=== PATIENT | male | born 1970 | race Caucasian/White ===

== ENCOUNTER → 2019-05-21 10:57 | Outpatient (BNVA) | payer MEDICARE, MEDICAID, SELFPAY | PROVIDERS: Family Provider Nurse Practitioner; PCP Nurse Practitioner; Visit Provider Nurse Practitioner | DX: E11.65 Type 2 diabetes mellitus with hyperglycemia (principal); I10 Essential (primary) hypertension; E11.40 Type 2 diabetes mellitus with diabetic neuropathy, unspecified; K12.2 Cellulitis and abscess of mouth; E55.9 Vitamin D deficiency, unspecified | CPT/HCPCS: 80053; 81003; 83036 ==

== ENCOUNTER → 2019-08-19 08:43 | Outpatient (BNVA) | payer MEDICARE, MEDICAID, SELFPAY | PROVIDERS: Family Provider Nurse Practitioner; PCP Nurse Practitioner; Visit Provider Nurse Practitioner | DX: E11.65 Type 2 diabetes mellitus with hyperglycemia (principal); I10 Essential (primary) hypertension; E11.40 Type 2 diabetes mellitus with diabetic neuropathy, unspecified; E55.9 Vitamin D deficiency, unspecified; K12.2 Cellulitis and abscess of mouth; M77.32 Calcaneal spur, left foot | CPT/HCPCS: 73630; 80053; 80061; 81000; 83036 ==

== ENCOUNTER → 2020-02-07 08:37 | Outpatient (BNVA) | payer MEDICARE, MEDICAID, SELFPAY | PROVIDERS: Family Provider Nurse Practitioner; PCP Nurse Practitioner; Visit Provider Nurse Practitioner | DX: I10 Essential (primary) hypertension (principal); E55.9 Vitamin D deficiency, unspecified; E11.65 Type 2 diabetes mellitus with hyperglycemia; E11.40 Type 2 diabetes mellitus with diabetic neuropathy, unspecified | CPT/HCPCS: 80053; 80061; 81000; 82306; 83036 ==

== ENCOUNTER → 2020-05-25 08:30 | Outpatient (BNVA) | payer MEDICARE, MEDICAID, SELFPAY | PROVIDERS: Family Provider Nurse Practitioner; PCP Nurse Practitioner; Visit Provider Nurse Practitioner | DX: E55.9 Vitamin D deficiency, unspecified (principal); E11.65 Type 2 diabetes mellitus with hyperglycemia; E11.40 Type 2 diabetes mellitus with diabetic neuropathy, unspecified; I10 Essential (primary) hypertension; M19.90 Unspecified osteoarthritis, unspecified site | CPT/HCPCS: 80053; 81000; 82306; 83036 ==

== ENCOUNTER → 2020-09-01 08:37 | Outpatient (BNVA) | payer MEDICARE, MEDICAID, SELFPAY | PROVIDERS: Family Provider Nurse Practitioner; PCP Nurse Practitioner; Visit Provider Nurse Practitioner | DX: E55.9 Vitamin D deficiency, unspecified (principal); E11.65 Type 2 diabetes mellitus with hyperglycemia; E11.40 Type 2 diabetes mellitus with diabetic neuropathy, unspecified; I10 Essential (primary) hypertension; M19.90 Unspecified osteoarthritis, unspecified site | CPT/HCPCS: 80053; 81000; 82043; 82306; 83036 ==

== ENCOUNTER → 2020-12-07 08:31 | Outpatient (BNVA) | payer MEDICARE, MEDICAID, SELFPAY | PROVIDERS: Family Provider Nurse Practitioner; PCP Nurse Practitioner; Visit Provider Nurse Practitioner | DX: E11.65 Type 2 diabetes mellitus with hyperglycemia (principal); E11.40 Type 2 diabetes mellitus with diabetic neuropathy, unspecified; E55.9 Vitamin D deficiency, unspecified; I10 Essential (primary) hypertension | CPT/HCPCS: 80053; 81000; 83036 ==

== ENCOUNTER → 2021-03-05 08:30 | Outpatient (BNVA) | payer MEDICARE, MEDICAID, SELFPAY | PROVIDERS: Family Provider Nurse Practitioner; PCP Nurse Practitioner; Visit Provider Nurse Practitioner | DX: E11.65 Type 2 diabetes mellitus with hyperglycemia (principal); E55.9 Vitamin D deficiency, unspecified | CPT/HCPCS: 80053; 80061; 81000; 82306; 83036 ==

== ENCOUNTER → 2021-08-06 08:55 | Outpatient (BNVA) | payer MEDICARE, MEDICAID, SELFPAY | PROVIDERS: Family Provider Nurse Practitioner; PCP Nurse Practitioner; Visit Provider Nurse Practitioner | DX: E11.65 Type 2 diabetes mellitus with hyperglycemia (principal); E11.40 Type 2 diabetes mellitus with diabetic neuropathy, unspecified; I10 Essential (primary) hypertension; E55.9 Vitamin D deficiency, unspecified; G47.33 Obstructive sleep apnea (adult) (pediatric); Z99.89 Dependence on other enabling machines and devices; J98.01 Acute bronchospasm | CPT/HCPCS: 80053; 80061; 81000; 83036 ==

== ENCOUNTER → 2021-11-08 08:15 | Outpatient (BNVA) | payer MEDICARE, MEDICAID, SELFPAY | PROVIDERS: Family Provider Nurse Practitioner; PCP Nurse Practitioner; Visit Provider Nurse Practitioner | DX: E11.65 Type 2 diabetes mellitus with hyperglycemia (principal); F41.1 Generalized anxiety disorder; K05.10 Chronic gingivitis, plaque induced; J98.01 Acute bronchospasm; E55.9 Vitamin D deficiency, unspecified; E11.40 Type 2 diabetes mellitus with diabetic neuropathy, unspecified; I10 Essential (primary) hypertension | CPT/HCPCS: 80053; 80061; 81000; 83036 ==

== ENCOUNTER → 2022-01-31 08:34 | Outpatient (BNVA) | payer MEDICARE, MEDICAID, SELFPAY | PROVIDERS: Family Provider Nurse Practitioner; PCP Nurse Practitioner; Visit Provider Nurse Practitioner | DX: J98.01 Acute bronchospasm (principal); F41.1 Generalized anxiety disorder; K05.10 Chronic gingivitis, plaque induced; E55.9 Vitamin D deficiency, unspecified; E11.40 Type 2 diabetes mellitus with diabetic neuropathy, unspecified; E11.65 Type 2 diabetes mellitus with hyperglycemia; I10 Essential (primary) hypertension; M25.512 Pain in left shoulder; M79.18 Myalgia, other site | CPT/HCPCS: 80053; 81000; 82306; 83036 ==

== ENCOUNTER → 2022-02-06 11:38 | Outpatient (BNVA) | payer MEDICARE, MEDICAID, SELFPAY | PROVIDERS: Family Provider Nurse Practitioner; PCP Nurse Practitioner; Visit Provider Nurse Practitioner | DX: M19.012 Primary osteoarthritis, left shoulder (principal); M25.512 Pain in left shoulder; M79.18 Myalgia, other site | CPT/HCPCS: 73030 ==

== ENCOUNTER → 2022-02-28 07:06 | Outpatient (BNVA) | payer MEDICARE, MEDICAID, SELFPAY | PROVIDERS: Family Provider Nurse Practitioner; PCP Nurse Practitioner; Visit Provider Student in an Organized Health Care Education/Training Program | DX: M75.102 Unspecified rotator cuff tear or rupture of left shoulder, not specified as traumatic (principal) | CPT/HCPCS: 99203 ==

== ENCOUNTER 2022-04-03 09:04 | Outpatient (CLI) | payer MEDICARE, MEDICAID, SELFPAY ==
--- NOTE | 2022-04-03 09:30 | MR_ITS ---
WS: [id number] MRI LEFT SHOULDER HISTORY: Limited range of motion, shoulder pain. COMPARISON: 02/06/2022 TECHNIQUE: Multiplanar sequences of the shoulder joint are submitted. Severe AC joint arthritis. Large osteophytes encroach upon the supraspinatus muscle and tendon. Soft tissue and bone hypertrophy. No os acromion. Biceps tendon is present in the bicipital groove. There is increased fluid within the biceps tendon sheath. Small insertion site tear along the bursal surface of the infraspinatus. There is a additional tendin opathy in the more proximal tendon. Fluid extends along the infraspinatus tendon to the medial judi l head. Significant fraying along the surfaces of the infraspinatus tendon. No complete full-thicknes s tear. Encroachment upon the supraspinatus tendon but there is no tear or increased signal. Significant incr eased signal and thickening of the distal subscapularis tendon. There is increase fluid surrounding t he tendon. Fluid is lobulated there may be a stenosis. Small loose bodies within the fluid. The subsc apularis tendon is being displaced from the glenoid by increased soft tissue at abnormal labrum. Abnormal appearance of the labrum. The anterior and posterior labrum have complex tears. Either labru m is attached. There is increased T2 signal throughout. Superior and inferior labrum are poorly visua lized but the shape is irregular normal. Mildly high riding humeral head. Glenohumeral joint is narrowed. Loss of cartilage along the glenoid. Abnormal T2 signal in the teres minor and major muscles. There is a large amount of fluid in the quad rilateral space. Cannot confirm tear within the tendons. No para labral cyst or mass is identified. MR/MR shoulder LT con* [id number] IMPRESSION: 1. Severe AC joint arthritis with encroachment upon the supraspinatus muscle an d tendon. 2. Insertion site tear along the bursal surface of the infraspinatus with an in terstitial tear extending more proximally along the tendon. 3. Fraying along the bursal articular surfaces of the infraspinatus tendon. 4. Increased signal throughout the subscapularis tendon with increased fluid estrada rrounding the tendon and tendinopathy but no definite tear is identified. 5. Diffusely abnormal anterior and posterior glenoid labrum with complex tears. The superior and inferior labrum are poorly visualized but abnormal shape. Claribel pect additional tears. 6. Glenohumeral joint narrowing with loss of the normal glenoid cartilage. 7. Edema within the teres minor and major with increase fluid in the quadrilate ral space. No mass identified. Correlate for compression of the axillary nerve.
== END 2022-04-03 09:05 | disposition home or self-care (01) ==
LOC: RAD 09:09
PROVIDERS: PCP Nurse Practitioner; Visit Provider Student in an Organized Health Care Education/Training Program
DX: M19.012 Primary osteoarthritis, left shoulder; S46.812A Strain of other muscles, fascia and tendons at shoulder and upper arm level, left arm, initial encounter; S43.432A Superior glenoid labrum lesion of left shoulder, initial encounter; X58.XXXA Exposure to other specified factors, initial encounter; R60.0 Localized edema
CPT/HCPCS: 73221

== ENCOUNTER → 2022-04-23 13:26 | Outpatient (BNVA) | payer MEDICARE, MEDICAID, SELFPAY | PROVIDERS: PCP Nurse Practitioner; Visit Provider Nurse Practitioner | DX: E11.65 Type 2 diabetes mellitus with hyperglycemia (principal); E55.9 Vitamin D deficiency, unspecified; J98.01 Acute bronchospasm; F41.1 Generalized anxiety disorder; K05.10 Chronic gingivitis, plaque induced; E11.40 Type 2 diabetes mellitus with diabetic neuropathy, unspecified; I10 Essential (primary) hypertension; Z12.5 Encounter for screening for malignant neoplasm of prostate | CPT/HCPCS: 80053; 80061; 81000; 82306; 83036; G0103 ==

== ENCOUNTER → 2022-05-23 09:32 | Outpatient (BNVA) | payer MEDICARE, MEDICAID, SELFPAY | PROVIDERS: PCP Nurse Practitioner; Visit Provider Nurse Practitioner Family | DX: R50.9 Fever, unspecified (principal); R05.9 Cough, unspecified; Z20.822 Contact with and (suspected) exposure to COVID-19 | CPT/HCPCS: 87400; 87426 ==

== ENCOUNTER → 2022-07-05 09:49 | Outpatient (BNVA) | payer MEDICARE, MEDICAID, SELFPAY | PROVIDERS: PCP Nurse Practitioner; Visit Provider Nurse Practitioner | DX: M25.571 Pain in right ankle and joints of right foot (principal) | CPT/HCPCS: 73610; 73630 ==

== ENCOUNTER → 2022-07-18 08:23 | Outpatient (BNVA) | payer MEDICARE, MEDICAID, SELFPAY | PROVIDERS: PCP Nurse Practitioner; Visit Provider Nurse Practitioner | DX: J98.01 Acute bronchospasm (principal); M10.9 Gout, unspecified; F41.1 Generalized anxiety disorder; K05.10 Chronic gingivitis, plaque induced; E55.9 Vitamin D deficiency, unspecified; E11.65 Type 2 diabetes mellitus with hyperglycemia; E11.40 Type 2 diabetes mellitus with diabetic neuropathy, unspecified; I10 Essential (primary) hypertension | CPT/HCPCS: 80053; 81000; 83036 ==

== ENCOUNTER → 2023-01-16 08:14 | Outpatient (BNVA) | payer MEDICARE, MEDICAID, SELFPAY | PROVIDERS: PCP Nurse Practitioner; Visit Provider Nurse Practitioner | DX: E11.65 Type 2 diabetes mellitus with hyperglycemia (principal); E55.9 Vitamin D deficiency, unspecified; J98.01 Acute bronchospasm; M10.9 Gout, unspecified; F41.1 Generalized anxiety disorder; I10 Essential (primary) hypertension; E11.40 Type 2 diabetes mellitus with diabetic neuropathy, unspecified; K05.10 Chronic gingivitis, plaque induced; R07.9 Chest pain, unspecified | CPT/HCPCS: 80053; 80061; 81000; 82306; 83036 ==

== ENCOUNTER → 2023-07-16 08:23 | Outpatient (BNVA) | payer MEDICARE, MEDICAID, SELFPAY | PROVIDERS: PCP Nurse Practitioner; Visit Provider Nurse Practitioner | DX: E11.9 Type 2 diabetes mellitus without complications (principal) | CPT/HCPCS: 80053; 80061; 81000; 83036 ==

== ENCOUNTER → 2023-07-23 09:07 | Outpatient (BNVA) | payer MEDICARE, MEDICAID, SELFPAY | PROVIDERS: PCP Nurse Practitioner; Visit Provider Nurse Practitioner | DX: M19.90 Unspecified osteoarthritis, unspecified site (principal) | CPT/HCPCS: 73562 ==

== ENCOUNTER → 2023-09-05 14:18 | Outpatient (BNVA) | payer MEDICARE, MEDICAID, SELFPAY | PROVIDERS: PCP Nurse Practitioner; Referring Provider Nurse Practitioner; Visit Provider Student in an Organized Health Care Education/Training Program | DX: M19.90 Unspecified osteoarthritis, unspecified site (principal); M17.0 Bilateral primary osteoarthritis of knee; M25.569 Pain in unspecified knee | CPT/HCPCS: 73560; 73565; 99213 ==

== ENCOUNTER → 2024-02-25 09:44 | Outpatient (BNVA) | payer MEDICARE, MEDICAID, SELFPAY | PROVIDERS: PCP Nurse Practitioner; Visit Provider Nurse Practitioner | DX: Z12.5 Encounter for screening for malignant neoplasm of prostate (principal); I10 Essential (primary) hypertension; E11.65 Type 2 diabetes mellitus with hyperglycemia; E11.9 Type 2 diabetes mellitus without complications | CPT/HCPCS: 80053; 80061; 81000; 82607; 83036; 84443; 85025 ==

== ENCOUNTER 2024-03-16 07:57 | Outpatient (CLI) | payer MEDICARE, MEDICAID, SELFPAY ==
[2024-03-16] MEDS: barium sulfate 450 mL Oral Susp PO (08:49)
--- NOTE | 2024-03-16 09:00 | CT_ITS ---
WS: [id number] CT ABDOMEN AND PELVIS NONCONTRAST HISTORY: R10.13 - Epigastric pain TECHNIQUE: Imaging performed through the abdomen and pelvis. Coronal and sagittal reformats are submi tted. All CT scans at [facility] use at least one of these dose optimization techniques: auto mated exposure control; mA and/or kV adjustment per patient size (includes targeted exams where dose is matched to clinical indication); or iterative reconstruction. DLP: 858.53 mGy.cm COMPARISON: None available. Lower thorax: Lung bases are clear. Visualized heart is normal. No hiatal hernia. Liver: Normal size liver. No mass or bile duct dilatation. Gallbladder: Prior cholecystectomy. Pancreas: Normal size and attenuation. Normal pancreatic duct. No pancreatitis or mass. Spleen: Normal. Adrenal glands: Normal. No mass. Right kidney: Normal size kidney with no mass or hydronephrosis. Left kidney: Normal size kidney with no mass or hydronephrosis. Aorta: Normal abdominal aorta, no aneurysm or atherosclerosis. No free fluid, intraperitoneal air or significant lymphadenopathy. GI tract: Stomach is markedly distended with oral contrast and food products. No small bowel obstruct ion. Diffuse constipation. Abdominal wall: Negative. No hernia. Pelvis: Well-distended urinary bladder. No free fluid or adenopathy. Osseous structures: Mild lumbar spondylosis. CT/CT abdomen pelvis wo con [id number] IMPRESSION: 1. No acute abdominal or pelvic abnormalities. 2. Prior cholecystectomy. 3. Marked fluid and food distention of the stomach is probably due to a recent meal. Otherwise mild diffuse constipation within the colon. 4. No renal obstruction.
== END 2024-03-16 07:58 | disposition home or self-care (01) ==
LOC: RAD 07:58
PROVIDERS: PCP Nurse Practitioner; Visit Provider Nurse Practitioner
DX: R10.13 Epigastric pain (principal); R63.4 Abnormal weight loss; Z90.49 Acquired absence of other specified parts of digestive tract
CPT/HCPCS: 74176

== ENCOUNTER → 2024-06-03 08:45 | Outpatient (BNVA) | payer MEDICARE, MEDICAID, SELFPAY | PROVIDERS: PCP Nurse Practitioner; Visit Provider Nurse Practitioner | DX: E11.9 Type 2 diabetes mellitus without complications (principal); E11.65 Type 2 diabetes mellitus with hyperglycemia; E55.9 Vitamin D deficiency, unspecified; I10 Essential (primary) hypertension; G47.00 Insomnia, unspecified; Z12.5 Encounter for screening for malignant neoplasm of prostate | CPT/HCPCS: 80053; 81000; 82306; 83036; G0103 ==

== ENCOUNTER → 2024-07-05 08:41 | Outpatient (BNVA) | payer MEDICARE, MEDICAID, SELFPAY | PROVIDERS: PCP Nurse Practitioner; Visit Provider Clinical Nurse Specialist Adult Health | DX: M54.14 Radiculopathy, thoracic region (principal); M47.894 Other spondylosis, thoracic region | CPT/HCPCS: 72072 ==

== ENCOUNTER 2024-07-28 06:54 | Outpatient (CLI) | payer MEDICARE, MEDICAID, SELFPAY ==
--- NOTE | 2024-07-28 07:15 | MR_ITS ---
WS: [id number] MRI THORACIC SPINE noncontrast HISTORY: M54.14 - Radiculopathy, thoracic region COMPARISON: Radiograph 07/05/2024 TECHNIQUE: Multiplanar sequences are performed in sagittal and axial planes. Straightening of the normal thoracic kyphosis. Disc spaces are narrowed and desiccated throughout the thoracic spine with hypertrophic endplate osteophytes. Hyperintense focus in T3 on all sequences consistent with a hemangioma. No fractures or destructive bone lesions. T1-2: Mild facet arthritis and foraminal stenosis. T2-3: Small central disc protrusion with bilateral facet arthritis. T3-4: No stenosis. T4-5: Moderate RIGHT facet joint arthropathy resulting in severe RIGHT foraminal stenosis. T5-6: Small central disc protrusion. Severe RIGHT facet arthritis resulting in severe RIGHT foraminal stenosis. T6-7: Bilateral moderate facet arthritis. Moderate bilateral foraminal stenosis, LEFT greater than RIGHT. T7-8: Bilateral facet arthritis and moderate foraminal stenosis. T8-9: Marked bilateral facet arthritis, LEFT greater than RIGHT. Moderate to severe bilateral foraminal stenosis. LEFT paracentral disc protrusion. T9-10: Marked facet and ligamentum flavum hypertrophy. Mild central with moderate to severe foraminal stenosis. T10-11: Marked facet joint arthritis, LEFT greater than RIGHT. Mild central and bilateral foraminal stenosis. T11-12: Moderate facet arthritis and mild foraminal stenosis. Paravertebral soft tissues are negative. MR/MR thoracic spin wo con* [id number] IMPRESSION: 1. No acute thoracic spine fractures. 2. Multilevel degenerative disc disease with hypertrophic osteophytes. 3. Central and foraminal stenosis at multiple levels due to combination of dis c, facet arthropathy and ligamentum flavum hypertrophy. 4. Severe RIGHT foraminal stenosis at T4-5 and T5-6. 5. Moderate bilateral foraminal stenosis at T6-7 and T7-8. 6. Moderate to severe bilateral foraminal stenosis at T8-9 with a LEFT paracen tral small disc protrusion. 7. Mild central with moderate to severe foraminal stenosis at T9-10. Mild cent ral and foraminal stenosis at T10-11.
== END 2024-07-28 06:55 | disposition home or self-care (01) ==
PROVIDERS: PCP Nurse Practitioner; Visit Provider Nurse Practitioner
DX: M54.14 Radiculopathy, thoracic region (principal); M51.34 Other intervertebral disc degeneration, thoracic region; M25.78 Osteophyte, vertebrae; M48.04 Spinal stenosis, thoracic region; M47.894 Other spondylosis, thoracic region; M24.28 Disorder of ligament, vertebrae; M51.24 Other intervertebral disc displacement, thoracic region; R93.7 Abnormal findings on diagnostic imaging of other parts of musculoskeletal system
CPT/HCPCS: 72146

== ENCOUNTER → 2024-08-19 09:16 | Outpatient (BNVA) | payer MEDICARE, MEDICAID, SELFPAY | PROVIDERS: PCP Nurse Practitioner; Visit Provider Nurse Practitioner | DX: E11.65 Type 2 diabetes mellitus with hyperglycemia (principal) | CPT/HCPCS: 80053; 81000; 83036 ==

== ENCOUNTER → 2024-11-29 08:27 | Outpatient (BNVA) | payer MEDICARE, MEDICAID, SELFPAY | PROVIDERS: PCP Nurse Practitioner; Visit Provider Nurse Practitioner | DX: E11.9 Type 2 diabetes mellitus without complications (principal) | CPT/HCPCS: 80053; 80061; 81000; 83036 ==

== ENCOUNTER → 2024-12-14 13:47 | Outpatient (BNVA) | payer MEDICARE, MEDICAID, SELFPAY | PROVIDERS: PCP Nurse Practitioner; Visit Provider Orthopaedic Surgery | DX: M54.9 Dorsalgia, unspecified (principal); M54.14 Radiculopathy, thoracic region | CPT/HCPCS: 72072; 99213 ==

== ENCOUNTER → 2025-02-21 08:23 | Outpatient (BNVA) | payer MEDICARE, MEDICAID, SELFPAY | PROVIDERS: PCP Nurse Practitioner; Visit Provider Nurse Practitioner | DX: E55.9 Vitamin D deficiency, unspecified (principal); E11.65 Type 2 diabetes mellitus with hyperglycemia; M10.9 Gout, unspecified | CPT/HCPCS: 80053; 80061; 81000; 82043; 82306; 83036; 84550 ==